=== PATIENT | female | born 1985 | race Caucasian/White ===

== ENCOUNTER 2019-12-16 10:06 | Emergency (ER) | payer OTHER ==
[~2019-12-16] VITALS: Ht 154.9 cm; Wt 68.8 kg
[2019-12-16 10:13] VITALS: BP 124/82
== END 2019-12-16 11:14 | disposition home or self-care (01) ==
LOC: ER 10:06
DX: F41.9 Anxiety disorder, unspecified (principal); R00.2 Palpitations; F17.200 Nicotine dependence, unspecified, uncomplicated
CPT/HCPCS: 71045; 82948; 93005; 99283; 99284